=== PATIENT | female | born 1995 | race Caucasian/White ===

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

== ENCOUNTER 2017-06-20 22:15 | Emergency (ER) | payer BC ==
[~2017-06-20] VITALS: Ht 157.5 cm; Wt 84.0 kg
[~2017-06-20 22:15] MED LIST changes: -LEXA10TA PO; +MACR100C2 PO
[2017-06-20 22:18] VITALS: BP 141/67; PULSE 114; RESP 16; TEMP 98.3; O2SAT 98
--- NOTE | 2017-06-21 00:13 | PD ---
HPI Chief Complaint: Complaint Time Seen by Provider: 23:13 Travel History International Travel<30 days: No Contact w/Intl Traveler<30days: No Traveled to known affect area: No History of Present Illness HPI The patient is a 21-year-old female who presents to the emergency department for bumps in the genitourinary area as well as dysuria. The patient states her symptoms have been ongoing for the last 4-5 days. She complains of bumps in the genitourinary area around the labia which are painful. She also complains of mild burning with urination. She does note occasional vaginal discharge which is clear and white. She is unsure when her last menstrual cycle was, however, is currently on control with an IUD. The patient also complains of mild suprapubic discomfort, denies any nausea, vomiting, or diarrhea. Symptoms are moderate. She denies any fever, chills, or sweats. PFSH Past Medical History Genitourinary: Yes (cystitis ) Tetanus Vaccination: Unknown Influenza Vaccination: No ?: Unknown LMP: 05/19/17 : 1 Para: 1 Past Surgical History Other Surgery: Yes (vessal repair s/p childbirth.) Social History Alcohol Use: No Tobacco Use: No Substance Use: No Allergies-Medications (Allergen,Severity, Reaction): Coded Allergies: No Known Allergies (Unverified , 12/31/16) Reported Meds & Prescriptions Reported Meds & Active Scripts Active Macrobid (Nitrofurantoin Monoh/Nitrofur Macro) 100 Mg Cap 100 Mg PO BID Review of Systems Except as stated in HPI: all other systems reviewed are Neg General / Constitutional: No: Fever Cardiovascular: No: Chest Pain or Discomfort Respiratory: No: Shortness of Breath Gastrointestinal: Positive: Abdominal Pain, No: Nausea, Vomiting, Diarrhea Genitourinary: Positive: Dysuria, Discharge, No: Vaginal Bleeding Skin: Positive Rash Physical Exam Narrative GENERAL: Awake, alert, pleasant 21-year-old female who appears her stated age and is in no acute respiratory distress. SKIN: Focused skin assessment warm/dry. HEAD: Atraumatic. Normocephalic. EYES: No injection or drainage GASTROINTESTINAL: Abdomen soft, minimal suprapubic tenderness. No guarding or rigidity. Back: No CVA tenderness Pelvic: The exam was performed in the presence of a female nurse. External examination reveals HSV-like lesions with vesicles and ulcerations in the labial area extending down to the gluteal area bilaterally. Speculum examination reveals yellow discharge in the vaginal vault. I was unable to manipulate the speculum to see the cervix secondary to the patient's pain from her HSV lesions. Wet prep and gonorrhea/chlamydia were sent to lab. MUSCULOSKELETAL: No obvious deformities. No clubbing. No cyanosis. No edema. NEUROLOGICAL: Awake and alert. No obvious cranial nerve deficits. Motor grossly within normal limits. Normal speech. PSYCHIATRIC: Appropriate mood and affect; insight and judgment normal. Data Data Last Documented VS Vital Signs Date Time Temp Pulse Resp B/P (MAP) Pulse Ox O2 Delivery O2 Flow Rate FiO2 06/20/17 22:18 98.3 114 16 141/67 (91) 98 Orders Orders Gc And Chlamydia Pcr (06/20/17 23:20) Wet Prep Profile (06/20/17 23:20) Urinalysis - C+S If Indicated (06/20/17 23:20) Ed Urine Pregnancytest Poc (06/20/17 23:20) Azithromycin Powd Pack (Zithromax Powd P (06/21/17 01:45) Ceftriaxone Inj (Rocephin Inj) (06/21/17 01:45) Lidocaine 1% Inj (50 Ml) (Xylocaine 1% I (06/21/17 01:45) Labs Laboratory Tests Test 06/21/17 00:17 06/21/17 01:35 Urine Color LIGHT-YELLOW Urine Turbidity CLEAR Urine pH 7.0 Urine Specific [place] 1.006 Urine Protein NEG mg/dL Urine Glucose (UA) NEG mg/dL Urine Ketones NEG mg/dL Urine Occult Blood NEG Urine Nitrite NEG Urine Bilirubin NEG Urine Urobilinogen LESS THAN 2.0 MG/DL Urine Leukocyte Esterase SMALL Urine RBC 3 /hpf Urine WBC 6 /hpf Urine Squamous Epithelial Cells <1 /hpf Urine Bacteria RARE /hpf Urine Mucus FEW /lpf Microscopic Urinalysis Comment CULT NOT INDICATED Clue Cells (Wet Prep) NONE SEEN Vaginal Trichomonas (Wet Prep) NONE SEEN Vaginal Yeast (Wet Prep) NONE SEEN MDM Medical Decision Making Medical Screen Exam Complete: Yes Emergency Medical Condition: Yes Medical Record Reviewed: Yes Interpretation(s) Laboratory Tests Test 06/21/17 00:17 06/21/17 01:35 Urine Color LIGHT-YELLOW Urine Turbidity CLEAR Urine pH 7.0 Urine Specific [place] 1.006 Urine Protein NEG mg/dL Urine Glucose (UA) NEG mg/dL Urine Ketones NEG mg/dL Urine Occult Blood NEG Urine Nitrite NEG Urine Bilirubin NEG Urine Urobilinogen LESS THAN 2.0 MG/DL Urine Leukocyte Esterase SMALL Urine RBC 3 /hpf Urine WBC 6 /hpf Urine Squamous Epithelial Cells <1 /hpf Urine Bacteria RARE /hpf Urine Mucus FEW /lpf Microscopic Urinalysis Comment CULT NOT INDICATED Clue Cells (Wet Prep) NONE SEEN Vaginal Trichomonas (Wet Prep) NONE SEEN Vaginal Yeast (Wet Prep) NONE SEEN Differential Diagnosis Differential diagnosis includes PID, cervicitis, vaginitis, genital warts, folliculitis, HSV, UTI, pyelonephritis, ectopic . Narrative Course Bedside UA test was obtained and UA was sent to lab. A pelvic exam was completed in the presence of a female nurse. A bedside UA test was negative. External examination reveals HSV type lesions with vesicles and ulcerations in the labial area extending to the gluteal area. Speculum examination reveals yellow discharge in vaginal vault, I was unable to visualize the cervix and IUD secondary to her pain upon examination from her HSV lesions. Wet prep and gonorrhea/chlamydia PCR were sent to lab. The patient was treated with Rocephin and Zithromax. Wet prep is negative. The patient will be treated with acyclovir 4 mg 3 times a day for 10 days. She is advised to follow-up with the [facility] department and may benefit from undergoing syphilis and HIV testing. Diagnosis Primary Impression: Genital herpes Qualified Codes: A60.04 - Herpesviral vulvovaginitis Patient Instructions: General Instructions Additional Instructions: Medications as directed. Follow-up with your primary physician. Return if symptoms worsen or progress. Follow-up at the [facility] as he may benefit from syphilis and HIV testing. Med/Other Pt SpecificInfo: Prescription(s) given Scripts Acyclovir (Acyclovir) 400 Mg Tab 400 MG PO TID for Mgmt Viral Infection for 10 Days, TAB 0 Refills Prov: Matt Kunz MD 06/21/17 Disposition: DISCHARGE HOME Condition: Stable Matt Kunz MD Jun 21, 2017 00:13
[2017-06-21 00:34] LABS: BACTERIA, URINE RARE /hpf; BILIRUBIN, URINE NEG (NEG); BLOOD, URINE NEG (NEG); GLUCOSE,URINE NEG (NEG); KETONE, URINE NEG (NEG); MUCUS URINE FEW /lpf (OCC); NITRITE,URINE NEG (NEG); SQUAMOUS EPITHELIAL CELL URINE <1 /hpf (0-5); URINE COLOR LIGHT-YELLOW (YELLW/STRAW); URINE LEUKOCYTE ESTERASE SMALL (NEG)
[2017-06-21] MEDS ORDERED: LIDOCAINE HCL 1% 50 ML VIAL IM ONE (01:45)
[2017-06-21] MEDS ORDERED: cefTRIAXone 250 MG VIAL IM ONE (01:45)
[2017-06-21] MEDS ORDERED: AZITHROMYCIN PWD FOR SUSP 1 GM PACKET PO ONE (01:45)
[2017-06-21] MEDS ORDERED: ACYC400T PO (02:07)
== END 2017-06-21 02:45 | disposition home or self-care (01) ==
LOC: NEPC 22:15
DX: A60.04 Herpesviral vulvovaginitis (principal)
CPT/HCPCS: 81001; 84703; 87210; 96372; 99283; J0696